=== PATIENT | male | born 1945 | race Caucasian/White ===

== ENCOUNTER → 2016-12-24 | Outpatient (CLI) | payer MEDICARE, BC ==
--- NOTE | 2016-12-25 08:38 | CT ---
EXAMINATION TYPE: CT shoulder RT wo con DATE OF EXAM: 12/24/2016 COMPARISON: NONE HISTORY: Right shoulder injury [address] DLP: 515.80 mGycm Automated exposure control for dose reduction was used. FINDINGS: Helical imaging through the right shoulder. Three-dimensional reconstructions performed on an [id number] workstation. Coronal and sagittal reconstructions performed. The acromion shows a displaced fracture of approximately 12 mm. Fracture fragment is displaced latera lly. Acromioclavicular joint shows arthropathy change. No evident dislocation. Arthropathy present at the glenohumeral joint. Cortical irregularity noted at the third, fourth ribs anterolaterally on the right compatible with nondisplaced fractures. No evident pneumothorax. IMPRESSION: FRACTURES DESCRIBED INVOLVING THE ACROMION AND RIGHT RIBS..
== END | disposition home or self-care (01) ==
LOC: RADCTMAIN 19:08
PROVIDERS: ATTEND Orthopaedic Surgery Sports Medicine
DX: S42.121A Displaced fracture of acromial process, right shoulder, initial encounter for closed fracture (principal); S22.41XA Multiple fractures of ribs, right side, initial encounter for closed fracture

== ENCOUNTER → 2019-05-24 | Outpatient (CLI) | payer MEDICARE, BC ==
--- NOTE | 2019-05-24 10:12 | CT ---
EXAMINATION TYPE: CT iac w con DATE OF EXAM: 05/24/2019 COMPARISON: None HISTORY: 73-year-old male with vertigo, left side hearing loss CT DLP: 150 mGycm Automated exposure control for dose reduction was used. TECHNIQUE: Contiguous high-resolution axial scanning of the temporal bones performed with IV Contras t, patient injected with 80 mL of Isovue 300. Coronal reformatted images obtained. FINDINGS: Visualized intracranial structures show mild atherosclerotic calcifications in the carotid siphons an d moderate atherosclerotic narrowing proximal V4 segment right vertebral artery. There is no cerebellopontine angle mass or evident brain stem abnormality by CT. The skull base appears normal. Some strandy debris within the left external auditory canal. Right external auditory canal is patent The middle ear cavities and mastoid air cells are well pneumatized. There is no abnormality of middle ear ossicles. The round and oval windows are normal. There is no abnormality of bony labyrinths. The vestibular aqueduct are well visualized. The facial nerve canal is normal bilaterally. The internal auditory canal and meati are symmetrical bilaterally. There is no evidence of fractures. Complete opacification left sphenoid sinus and moderate mucosal thickening posterior left ethmoid air cells. Reformatted images confirm above findings. IMPRESSION: 1. Some strandy debris within the left external auditory canal. 2. Complete opacification of the left sphenoid sinus compatible with chronic sinus disease. 3. Otherwise, no specific abnormality on IAC CT.
== END | disposition home or self-care (01) ==
LOC: RADCTMAIN 08:35
PROVIDERS: ATTEND Otolaryngology
DX: J34.89 Other specified disorders of nose and nasal sinuses (principal); H91.92 Unspecified hearing loss, left ear
CPT/HCPCS: 82565; 84520; 70481; 36415; Q9967

== ENCOUNTER → 2023-07-28 | Outpatient (CLI) | payer MEDICARE, BC | END | disposition home or self-care (01) | LOC: LABWHC1 11:52 | PROVIDERS: ATTEND Urology | DX: R97.20 Elevated prostate specific antigen [PSA] (principal) | CPT/HCPCS: 36415; 84153 ==